=== PATIENT | male | born 1950 | race Caucasian/White ===

== ENCOUNTER 2019-11-14 12:23 | Observation (INO) | payer MEDICARE ==
[~2019-11-14] VITALS: Ht 193 cm; Wt 118.8 kg
--- NOTE | 2019-11-14 13:04 | NUR ---
PT UPRIGHT ON GURNEY AWAKE & CALM, NAD BUT C/O LT CHEST/NECK TIGHTNESS, RESPONDS APPROP TO STAFF, COMFORT MEASURESPROVIDED, AT BS, CALL LIGHT WITHIN REACH.
[2019-11-14] MEDS ORDERED: ASPIRIN 81 MG TABLET CHEW ONE (13:08)
[2019-11-14] MEDS ORDERED: NITROGLYCERIN SINGLE TAB 0.4 MG SL ONE (13:08)
[2019-11-14] MEDS: NITROGLYCERIN SINGLE TAB 0.4 MG SL PRN ×2 (13:18→13:27)
[2019-11-14 13:27] LABS: BASOPHILS # (AUTO) 0.04 x10^3/uL (0-0.1); BASOPHILS % (AUTO) 1 % (0-1); EOSINOPHILS # (AUTO) 0.04 x10^3/uL (0-0.4); EOSINOPHILS % (AUTO) 1 % (1-7); LYMPHOCYTES # (AUTO) 1.01 x10^3/uL (1-3.4); LYMPHOCYTES % (AUTO) 16 % (22-44); MD NO; MEAN CORPUSCULAR HEMOGLOBIN 32.2 pg (27.5-34.5); MEAN CORPUSCULAR HGB CONC 33.4 g/dL (33.2-36.2); MEAN CORPUSCULAR VOLUME 96.5 fL (81-97); MEAN PLATELET VOLUME 7.4 fL (7.4-10.4); MONOCYTES # (AUTO) 0.49 x10^3/uL (0.2-0.8); MONOCYTES % (AUTO) 8 % (2-9); NEUTROPHILS % (AUTO) 75 % (42-75); PLATELET COUNT 206 x10^3/uL (130-400); RED CELL DISTRIBUTION WIDTH 13.1 % (9.4-14.8)
[2019-11-14] MEDS ORDERED: ASPIRIN 81 MG TABLET CHEW PO ONE (13:30)
--- NOTE | 2019-11-14 13:35 | NUR ---
PT REPORTS DECR TIGHTNESS IN CHEST BUT C/O PERSISTENT NECK TIGHTNESS AFTER 2 DOSES OF NTG- ERP AWARE.
[2019-11-14 13:39] LABS: ALBUMIN 3.3 g/dL (3.4-5.0); ANION GAP 7 mmol/L (5-15); CALCIUM 8.9 mg/dL (8.5-10.1); CHLORIDE 106 mmol/L (98-107)
[2019-11-14 13:45] LABS: ALANINE AMINOTRANSFERASE 34 U/L (12-78); ALKALINE PHOSPHATASE 53 U/L (45-117); BILIRUBIN,TOTAL 0.7 mg/dL (0.2-1.0); TOTAL PROTEIN 6.7 g/dL (6.4-8.2); TROPONIN I < 0.015 ng/mL (0.000-0.045)
[2019-11-14] MEDS ORDERED: SODIUM CHLORIDE FLUSH 10ML SYR IVF ONE (14:00)
--- NOTE | 2019-11-14 14:18 | NUR ---
PT REMAINS UPRIGHT ON GURNEY AWAKE & MORE COMFORTABLE, NAD/DENIES DISCOMFORT, RESPONDS APPROP TO STAFF, COMFORT MEASURES PROVIDED, AT BS, CALL LIGHT WITHIN REACH.
[2019-11-14] MEDS ORDERED: LISI5TAB7 PO (14:50)
[2019-11-14] MEDS ORDERED: TUMERIC PO (14:50)
[2019-11-14] MEDS ORDERED: HYDR25TA6 PO (14:50)
[2019-11-14] MEDS ORDERED: CINN500C2 PO (14:50)
[2019-11-14] MEDS ORDERED: OMEG1CAP23 PO (14:50)
--- NOTE | 2019-11-14 15:01 | NUR ---
PT UPRIGHT ON GURNEY AWAKE & COMFORTABLE, NAD/DENIES DISCOMFORT, RESPONDS APPROP TO STAFF, COMFORT MEASURES PROVIDED, CALL LIGHT WITHIN REACH.
--- NOTE | 2019-11-14 16:20 | NUR ---
Pt to be admitted to [facility], room 521-1. Report called to Glenna Matias.
[2019-11-14] MEDS ORDERED: hydrALAzine 20 MG/ML, 1ML IVPush PRN (16:30)
[2019-11-14] MEDS ORDERED: LABETALOL 5MG/ML, 20ML IVPush PRN (16:30)
[2019-11-14] MEDS ORDERED: NITROGLYCERIN 0.4 MG BOTTLE (25 TABS) SL PRN ×2 (16:30→20:30)
[2019-11-14] MEDS ORDERED: morphine SULFATE 10 MG/ML, 1ML IVPush PRN (16:30)
[2019-11-14] MEDS ORDERED: ACETAMINOPHEN 325 MG TABLET PO PRN (16:30)
[2019-11-14] MEDS ORDERED: ONDANSETRON 2MG/ML, 2ML IVPush PRN (16:30)
[2019-11-14 16:45] LABS: CHOLESTEROL, TOTAL 214 mg/dL (140-239); TRIGLYCERIDES 160 mg/dL (50-200); VLDL CHOLESTEROL 32 mg/dL (0-25)
[2019-11-14 16:48] LABS: CHOL/HDL RATIO 5.1; HDL CHOL % 20 % (26-37); HDL CHOLESTEROL (DIRECT) 42 mg/dL (40-60); LDL CHOLESTEROL,CALCULATED 140 mg/dL (54-169); LDL/HDL RATIO 3.3 (0.5-3.0); TROPONIN I < 0.015 ng/mL (0.000-0.045)
[2019-11-14 17:33] VITALS: BP 158/83
[2019-11-14 20:30] VITALS: BP 157/68
[2019-11-14] MEDS ORDERED: NITROGLYCERIN 0.4 MG/SPRAY SL PRN (20:30)
[2019-11-14] MEDS: HEPARIN 5,000 UNITS/ML, 1ML SQ SCH (20:59)
[2019-11-14] MEDS ORDERED: ATORVASTATIN 40 MG TABLET PO SCH (21:00)
[2019-11-15 00:09] LABS: TROPONIN I < 0.015 ng/mL (0.000-0.045)
[2019-11-15 01:32] VITALS: BP 128/74
[2019-11-15 05:44] LABS: ANION GAP 4 mmol/L (5-15); CALCIUM 8.4 mg/dL (8.5-10.1); CHLORIDE 107 mmol/L (98-107)
[2019-11-15 05:50] LABS: ALANINE AMINOTRANSFERASE 31 U/L (12-78); ALKALINE PHOSPHATASE 49 U/L (45-117); TOTAL PROTEIN 6.2 g/dL (6.4-8.2); TROPONIN I < 0.015 ng/mL (0.000-0.045)
[2019-11-15] MEDS: HEPARIN 5,000 UNITS/ML, 1ML SQ SCH ×2 (05:51→13:49)
[2019-11-15 05:52] LABS: BASOPHILS # (AUTO) 0.02 x10^3/uL (0-0.1); BASOPHILS % (AUTO) 0 % (0-1); EOSINOPHILS # (AUTO) 0.09 x10^3/uL (0-0.4); EOSINOPHILS % (AUTO) 2 % (1-7); LYMPHOCYTES % (AUTO) 26 % (22-44); MD NO; MEAN CORPUSCULAR HEMOGLOBIN 31.9 pg (27.5-34.5); MEAN CORPUSCULAR HGB CONC 33.4 g/dL (33.2-36.2); MEAN CORPUSCULAR VOLUME 95.6 fL (81-97); MEAN PLATELET VOLUME 7.6 fL (7.4-10.4); MONOCYTES # (AUTO) 0.53 x10^3/uL (0.2-0.8); MONOCYTES % (AUTO) 11 % (2-9); NEUTROPHILS # (AUTO) 2.87 x10^3/uL (1.8-6.8); NEUTROPHILS % (AUTO) 61 % (42-75); PLATELET COUNT 199 x10^3/uL (130-400); RED CELL DISTRIBUTION WIDTH 13.2 % (9.4-14.8)
[2019-11-15] MEDS ORDERED: ASPIRIN 325 MG TABLET EC PO SCH (06:00)
[2019-11-15 07:01] VITALS: BP 124/81
[2019-11-15] MEDS ORDERED: REGADENOSON 0.4 MG/5 ML SYRINGE ONE (08:13)
[2019-11-15] MEDS ORDERED: LISINOPRIL 40 MG TABLET PO SCH (09:00)
[2019-11-15] MEDS ORDERED: HYDROCHLOROTHIAZIDE 25 MG TABLET PO SCH (09:00)
[2019-11-15 14:00] VITALS: BP 136/74
[2019-11-15] MEDS ORDERED: ASPI-515 PO (15:58)
== END 2019-11-15 16:48 | disposition home or self-care (01) ==
LOC: ED 14:23 → INTOOBSV 14:31 → EDIP 14:31 → 5SO 16:55 → DCLOUNGE 11-15 16:41
PROVIDERS: ADMIT Internal Medicine; ATTEND Internal Medicine
DX: R07.89 Other chest pain (principal); I20.0 Unstable angina; R07.2 Precordial pain; I10 Essential (primary) hypertension; E66.9 Obesity, unspecified; Z79.899 Other long term (current) drug therapy; Z79.82 Long term (current) use of aspirin
CPT/HCPCS: 36415; 71045; 78452; 80053; 80061; 84484; 85025; 85379; 93005; 93017; 93306; 96372; 99285; A9502; G0378; J1644; J2785